=== PATIENT | female | born 1930 | race Caucasian/White ===

== ENCOUNTER 2017-03-16 18:16 | Inpatient (IN) ==
[2017-03-16 19:29] LABS: Basophils # 0.1 10*3/uL (0.0-0.2); Basophils % 0.5 % (0.0-0.8); Eosinophils # 0.1 10*3/uL (0.0-0.87); Eosinophils % 0.7 % (0.00-10.9); Hematocrit 34.9 VOL% (35.7-47.0); Hemoglobin 12.3 GM/DL (12.0-16.0); Immature Granulocytes % 0.3 %; Immature Granulocytes Absolute 0.04 #; Lymphocytes # 1.4 10*3/uL (1.4-4.0); Lymphocytes % 11.6 % (21.3-54.2); Mean Corpuscular HGB Conc 35.2 GM/DL (32-36); Mean Corpuscular Hemoglobin 31 PG (27-34); Mean Corpuscular Volume 88.6 FL (87-102); Mean Platelet Volume 10.9 FL (9.6-12.0); Monocytes # 0.7 10*3/uL (0.11-0.8); Monocytes % 5.8 % (1.7-12.7); Neutrophils # 9.5 10*3/uL (1.4-7.4); Neutrophils % 81.1 % (38.7-73.9); Platelet Count 206 T/CUMM (130-400); Red Blood Count 3.94 MC/CUMM (3.8-5.5); Red Cell Distribution Width 12.4 % (9.3-17.3); White Blood Count 11.7 T/CUMM (4-12)
[2017-03-16 19:39] LABS: PT Patient Result 10.5 SECS; Partial Thromboplastin Time 24.1 SECS (0-40)
[2017-03-16 19:55] LABS: Calcium 8.8 MG/DL (8.5-10.1); Osmolality,Calculated 281.8 MOS/KG (273-304); Potassium 3.7 MMOL/L (3.5-5.1)
[2017-03-16] MEDS ORDERED: ONDANSETRON 4 MG/2 ML VIAL IV PRN (21:52)
[2017-03-17 05:06] LABS: Osmolality,Calculated 287.3 MOS/KG (273-304); Potassium 3.7 MMOL/L (3.5-5.1)
[2017-03-17] MEDS: ENOXAPARIN 30 MG/0.3 ML SYRINGE SUBCUT SCH (08:20)
[2017-03-17] MEDS: CITALOPRAM 20 MG TABLET PO SCH (08:54)
[2017-03-17] MEDS: DILTIAZEM CD 180 MG CAPSULE PO SCH (08:54)
[2017-03-17] MEDS: TRIAMTERENE/HCTZ 37.5-25 MG CAPSULE PO SCH (08:54)
[2017-03-17] MEDS: PANTOPRAZOLE 40 MG TABLET PO SCH (08:55)
[2017-03-17] MEDS: SODIUM CHLORIDE 0.9% 1,000 ML IV SCH ×2 (08:55→12:44)
[2017-03-17] MEDS ORDERED: ceFAZolin 1,000 MG VIAL ONE (15:46)
[2017-03-17] MEDS ORDERED: BUPIVACAINE 0.25% 50 ML VIAL ONE (17:04)
[2017-03-17] MEDS ORDERED: ONDANSETRON 4 MG/2 ML VIAL ONE (17:36)
[2017-03-17] MEDS ORDERED: SEVOFLURANE 1 UNIT/15 MINUTE INH ONE (17:36)
[2017-03-17] MEDS ORDERED: KETOROLAC 30 MG/1 ML VIAL ONE (17:36)
[2017-03-17] MEDS ORDERED: PROPOFOL 200 MG/20 ML VIAL IV ONE (17:36)
[2017-03-17] MEDS ORDERED: DEXAMETHASONE 10 MG/1 ML VIAL ONE (17:36)
[2017-03-17] MEDS ORDERED: fentaNYL 100 MCG/2 ML VIAL ONE (17:36)
[2017-03-18 03:23] LABS: Hematocrit 29.7 VOL% (35.7-47.0); Hemoglobin 10.1 GM/DL (12.0-16.0); Immature Granulocytes % 0.4 %; Immature Granulocytes Absolute 0.03 #; Lymphocytes # 0.7 10*3/uL (1.4-4.0); Lymphocytes % 9.7 % (21.3-54.2); Mean Corpuscular Hemoglobin 31 PG (27-34); Mean Corpuscular Volume 91.1 FL (87-102); Mean Platelet Volume 11.9 FL (9.6-12.0); Monocytes # 0.1 10*3/uL (0.11-0.8); Monocytes % 1.3 % (1.7-12.7); Neutrophils % 88.6 % (38.7-73.9); Platelet Count 166 T/CUMM (130-400); Red Blood Count 3.26 MC/CUMM (3.8-5.5); Red Cell Distribution Width 12.7 % (9.3-17.3); White Blood Count 6.8 T/CUMM (4-12)
[2017-03-18 03:46] LABS: Calcium 7.9 MG/DL (8.5-10.1); Osmolality,Calculated 288.4 MOS/KG (273-304); Potassium 4.4 MMOL/L (3.5-5.1)
[2017-03-18] MEDS: CITALOPRAM 20 MG TABLET PO SCH (08:56)
[2017-03-18] MEDS: TRIAMTERENE/HCTZ 37.5-25 MG CAPSULE PO SCH (08:56)
[2017-03-18] MEDS: ENOXAPARIN 30 MG/0.3 ML SYRINGE SUBCUT SCH (08:56)
[2017-03-18] MEDS: SODIUM CHLORIDE 0.9% 1,000 ML IV SCH ×2 (08:57→17:29)
[2017-03-18] MEDS: DILTIAZEM CD 180 MG CAPSULE PO SCH (08:57)
[2017-03-18] MEDS: PANTOPRAZOLE 40 MG TABLET PO SCH (08:57)
[2017-03-19] MEDS: SODIUM CHLORIDE 0.9% 1,000 ML IV SCH (08:19)
[2017-03-19] MEDS: PANTOPRAZOLE 40 MG TABLET PO SCH (09:52)
[2017-03-19] MEDS: CITALOPRAM 20 MG TABLET PO SCH (09:52)
[2017-03-19] MEDS: TRIAMTERENE/HCTZ 37.5-25 MG CAPSULE PO SCH (09:53)
[2017-03-19] MEDS: DILTIAZEM CD 180 MG CAPSULE PO SCH (09:53)
[2017-03-19] MEDS: ENOXAPARIN 30 MG/0.3 ML SYRINGE SUBCUT SCH (09:54)
[2017-03-19 12:13] VITALS: BP 111/56
== END 2017-03-19 12:55 | DRG 488 ==
LOC: EDUNIT# → EDBD → N.ED 18:16 → N.EDINP 22:15 → N.4E 22:22